=== PATIENT | male | born 1970 | race Caucasian/White ===

== ENCOUNTER → 2019-02-09 | Day surgery (SDC) | payer OTHER ==
[~2019-02-09] MED LIST: DEXAMETHASONE SOD PHOS 10 MG/1 ML VIAL ONE; FENTANYL CITRATE/PF 100MCG/2 ML INJ ONE; GLYCOPYRROLATE INJ 1MG/ 5 ML SYR ONE; KETOROLAC TROMETHAMINE 30 MG/ML VIAL ONE; LIDOCAINE HCL 2% LOCAL INJ 5 ML SDV VIAL INJ ONE; LOSARTAN-HCTZ1 EACH PO; MIDAZOLAM HCL 2 MG/2 ML VIAL ONE; NEOSTIGMINE 5 MG/5ML SYR ONE; ONDANSETRON HCL INJ 2MG/ML 2ML 2 MG/ML VIAL ONE; OXYMETAZOLINE HCL 0.05% NAS 1 SPRAY BTL ONE; PANTOPRAZOLE SO40 MG PO; PROBIOTIC & AC1 EACH PO; PROPOFOL IV EMULSION 10 MG/ML 20 ML VIAL ONE; ROCURONIUM BROMIDE 10 MG/ML 5ML VIAL ONE; SEVOFLURANE INHAL SOLN 250 ML PEN BTL ONE; SUCCINYLCHOLINE 200 MG/10 ML SYR ONE; WELLBUTRIN SR150 MG PO; ZYRTEC10 MG PO
--- OUTSIDE RECORDS SUMMARY | 2019-02-09 08:01 | XMS REPORT ---
Author Author [facility] Address Unknown Phone Unavailable Care Team Providers Care Scoring Machine Operator Name Role Phone Malcom Whitehead Unavailable Unavailable Karmen Munguia Unavailable Unavailable Problems This patient has no known problems. Allergies, Adverse Reactions, Alerts This patient has no known allergies or adverse reactions. Medications This patient has no known medications. Results Test Description Test Time Test Comments Text Results Atomic Results Result Comments Thoracic Spine Ap/Lat 2018-01-20 12:35:00 [place] [address] RADIOLOGY SERVICES REPORT Name: YASMANY SR LEONARDA Acct Number: [id number] :1970 Age:47 Sex:M Ord Phys: Malcom Whitehead MD Unit Number: [id number] [facility] [address]: Status: REG REF RAD Exam Date: 01/20/18 EXAM DESCRIPTION: RAD - Thoracic Spine Ap/Lat - 01/20/2018 12:17 pm CLINICAL HISTORY: M54.2, M54.6 Radiculopathy COMPARISON: No comparisons FINDINGS: The thoracic spine vertebral body heights and disc spaces are largely maintained. No acute compression fracture. No significant malalignment. Cholecystectomy clips. IMPRESSION: Negative study. Signed By: Armani Bruce MD Signed AT: 01/20/18 1236 C Spine Ap/Lat 2018-01-20 12:30:00 [place] [address] RADIOLOGY SERVICES REPORT Name: SR,TODD LEONARDA Acct Number: [id number] :1970 Age:47 Sex:M Ord Phys: Malcom Whitehead MD Unit Number: [id number] [facility] Dr: Status: REG REF RAD Exam Date: 01/20/18 EXAM DESCRIPTION: RAD - C Spine Ap/Lat - 01/20/2018 12:17 pm CLINICAL HISTORY: M54.2, M54.6 COMPARISON: No comparisons FINDINGS: Cervical bodies are normal in height and alignment.No fracture or acute bony process seen.Disc thinning at C4-5 and C5-6 with posterior osteophytes. No prevertebral soft tissue thickening or other suspicious soft tissue finding. IMPRESSION: Moderate midcervical degenerative change. Signed By: Armani Bruce MD Signed AT: 01/20/18 1231 Aerobic bacterial blood culture 2017-09-16 21:12:00 Primary Language Swiss No growth in 5 days.^No growth in 5 days.^L Blood anaerobic culture 2017-09-16 21:12:00 Primary Language Swiss No growth in 5 days.^No growth in 5 days.^L 41339--KVVN PATH LEVEL 3 2017-09-15 09:35:00 RUN DATE: 09/15/17 [facility]*Live* PAGE 1 RUN TIME: 934 Specimen Inquiry PATIENT: YASMANY SR ACCT: [id number] LOC: 2ND U: [id number] AGE/SX: 47/M ROOM: 225 RE09/12/17REG DR: Karmen Munguia MD : 1970 BED: A DIS: 09/14/17 STATUS: DIS IN TLOC: SPEC : [id number] RECD: 09/12/17 STATUS: NNEKA BAUER NUM: [id number] YANCI: 09/12/[address]: Akira Weathers MD ENTERED: 09/12/17 SP TYPE: INPATIENT OTHR DR: Karmen Munguia MD ORDERED: [id number] CODES: GALLBLADDER, NO COPIES TO: Karmen Munguia MD [address] [place] [address] Akira Weathers MD [address] [place] [address] [address], [place] [address] PROCEDURES: [id number] (09/12/17) TISSUES: GALLBLADDER, NOS CLINICAL HISTORY Pre-op Diagnosis: Cholelithiasis.Post-op Diagnosis: Not stated. DIAGNOSIS Gallbladder, cholecystectomy: - Cholelithiasis - Acute and chronic cholecystitis CPT 55085 GROSS DESCRIPTION The case is received in one part, labeled with the patient's name "Yasmany Sr" andaccession #[id number] accompanied by a requisition slip labeled with the patient's name andthe same accession number. The specimen is received in formalin, labeled "gallbladder" and consists of an intacttan-red to purple saccular gallbladder measuring 11 x 5 x 3.5 cm. The serosa is dusky andappears inflamed. There is a small amount of attached possible exudate. There is a greenoval gallstone in the lumen measuring 2.2 cm in maximum dimension. The wall of thegallbladder ranges from 0.2 to 1 cm in thickness. The mucosa is erythematous. Representativesections are submitted in two cassettes. (ASW) CONTINUED ON NEXT PAGE ------ RUN DATE: 09/15/17 [facility]*Live* PAGE 2 RUN TIME: 934 Specimen Inquiry SPEC: [id number] PATIENT: AMBARYASMANY [id number] (Continued) MICROSCOPIC DESCRIPTION Sections show gallbladder wall with acute and chronic inflammation and hemorrhage. Signed (signature on file) Danielle Moreno MD 09/15/17 0935 END OF REPORT Complete blood count (CBC) with automated white blood cell (WBC) differential 2017-09-14 05:57:00 White blood cell count (test saqz=GLP6058) 12.1 4.3-10.9 Blood erythrocytes count (number/volume) (test mtfb=14122-9) 4.27 M/ul 4.33-5.43 Hemoglobin measurement (test yhaw=TIE5556) 10.8 g/dL 13.6-17.9 Blood hematocrit (volume fraction) (test yhcs=56932-2) 33.9 % 39.6-49.0 MCV (test hsfr=02655-9) 79.3 fL 80-100 MCH (test dada=93585-4) 25.3 pg 27.0-35.0 MCHC (test code=MCHC) 32.0 g/dL 32.0-36.0 Platelets (test code=PLT) 178 152-406 Red Cell Distribution Width (test code=RDW) 17.6 % 12.1-15.2 Blood platelet mean volume (test zany=29856-9) 9.9 fL 7.6-11.3 Neutrophils % (test code=EMMETT%) 76.2 % 41.7-73.7 Lymphocytes/leuk NFr Bld (test lubo=62427-9) 10.0 % 15.3-44.8 Monocyte percentage (test szwt=9580-6) 11.7 % 3.3-12.3 Eosinophil % (test bnrg=874-3) 1.6 % 0-4.4 Basophil % (test rrpi=10091-2) 0.5 % 0-1.3 Absolute neutrophil count (test bafu=164-9) 9.2 1.8-8.0 Absolute lymphocyte count (test fvge=12456-8) 1.2 0.7-4.9 Absolute monocyte count (test icdu=179-5) 1.4 0.1-1.3 Absolute Eosinophils (test code=EOA) 0.2 0-0.5 Absolute Basophils (test code=BASA) 0.1 0-0.5 Primary Language EnglishComprehensive metabolic trawo6274-15-51 05:49:00* Test Item Value Reference Range Comments Sodium level (test rumn=ZPX9262) 134 meq/L 135-145 3.9 Chloride measurement (test xmvu=IDA3950) 100 meq/L 101-111 Bicarbonate (test code=CO2) 28 meq/L 21-31 Glucose measurement (test tilj=RLP8289) 106 mg/dL 65-120 ADA Clinical Practice Recommendation: <100 mg/dl=Normal Fasting Glucose BUN Bld-mCnc (test okqd=0719-8) 8 mg/dL 6-20 Creatinine measurement (test pvxf=EUS2517) 0.85 mg/dL 0.61-1.24 The creatinine method used has been calibrated to be traceable to Isotope dilution Mass Spectrometry (IDMS). For more information: www.nkdep.nih.gov Estimated glomerular filtration rate (GFR) determination (test bfec=72906-8) >90 mL =/>90 FOR CHRONIC KIDNEY DISEASE: GFR STAGE DESCRIPTION=/>90 STAGE 1 NORMAL--OR-- MINIMAL KIDNEY DAMAGE WITH NORMAL GFR 60-89 STAGE 2 MILD DECREASE IN GFR 30-59 STAGE 3 MODERATE DECREASE IN GFR 15-29 STAGE 4 SEVERE DECREASE IN GFR <15 STAGE 5 KIDNEY FAILURE The Glomerular Filtration Rate (GFR) has been calculated using the IDMS-Traceable MDRD Study Equation. Aspartate aminotransferase (AST) measurement (test nkky=SDX8061) 49 [iU]/L 10-42 ALT/SGPT (test code=SGPT) 73 [iU]/L 10-60 Alkaline Phosphatase (test code=ALK) 60 [iU]/L 42-121 Bilirubin total (test ujzn=PRC1880) 0.8 mg/dL 0.3-1.2 Calcium Level (test code=CA) 8.3 mg/dL 8.5-10.5 Serum total protein measurement (test nodi=6596-7) 5.7 g/dL 6.0-8.3 Albumin measurement (test bizc=SER1362) 2.7 g/dL 3.2-5.5 Globulin (test code=GLOB) 3.0 g/dL 2.3-3.5 Albumin/Globulin Ratio (test code=A/G) 0.9 1.1-1.8 Primary Language EnglishPhosphorus cpvszaoalyy8607-27-97 05:49:00* Test Item Value Reference Range Comments Phosphorus measurement (test ukik=QXF0539) 2.9 mg/dL 2.5-4.3 Primary Language MkeaalxFmtphjhnj2751-95-65 05:49:00* Test Item Value Reference Range Comments Magnesium (test code=MG) 1.9 mg/dL 1.8-2.5 Primary Language EnglishComprehensive metabolic wynwz8193-07-90 05:35:00* Test Item Value Reference Range Comments Sodium level (test oukj=TVP9981) 134 meq/L 135-145 4.1 Chloride measurement (test aelj=XKH4604) 100 meq/L 101-111 Bicarbonate (test code=CO2) 28 meq/L 21-31 Glucose measurement (test kbsm=RVC3158) 109 mg/dL 65-120 ADA Clinical Practice Recommendation: <100 mg/dl=Normal Fasting Glucose BUN Bld-mCnc (test febh=1639-0) 11 mg/dL 6-20 Creatinine measurement (test wwbj=JLR3670) 1.12 mg/dL 0.61-1.24 The creatinine method used has been calibrated to be traceable to Isotope dilution Mass Spectrometry (IDMS). For more information: www.nkdep.nih.gov Estimated glomerular filtration rate (GFR) determination (test ezdz=57442-3) 70 mL =/>90 FOR CHRONIC KIDNEY DISEASE: GFR STAGE DESCRIPTION=/>90 STAGE 1 NORMAL--OR-- MINIMAL KIDNEY DAMAGE WITH NORMAL GFR 60-89 STAGE 2 MILD DECREASE IN GFR 30-59 STAGE 3 MODERATE DECREASE IN GFR 15-29 STAGE 4 SEVERE DECREASE IN GFR <15 STAGE 5 KIDNEY FAILURE The Glomerular Filtration Rate (GFR) has been calculated using the IDMS-Traceable MDRD Study Equation. Aspartate aminotransferase (AST) measurement (test zeeb=UFA8092) 71 [iU]/L 10-42 ALT/SGPT (test code=SGPT) 79 [iU]/L 10-60 Alkaline Phosphatase (test code=ALK) 65 [iU]/L 42-121 Bilirubin total (test bftv=FWI8869) 0.7 mg/dL 0.3-1.2 Calcium Level (test code=CA) 8.0 mg/dL 8.5-10.5 Serum total protein measurement (test pziw=1157-6) 5.9 g/dL 6.0-8.3 Albumin measurement (test jvyv=FGU8993) 3.0 g/dL 3.2-5.5 Globulin (test code=GLOB) 2.9 g/dL 2.3-3.5 Albumin/Globulin Ratio (test code=A/G) 1.0 1.1-1.8 Primary Language EnglishPhosphorus requcoljska7880-90-71 05:35:00* Test Item Value Reference Range Comments Phosphorus measurement (test gvea=ACK9682) 2.9 mg/dL 2.5-4.3 Primary Language RjakmezQewfsnpps1201-21-48 05:35:00* Test Item Value Reference Range Comments Magnesium (test code=MG) 2.0 mg/dL 1.8-2.5 Primary Language EnglishComplete blood count (CBC) with automated white blood cell (WBC) lfhqidyddqdo5591-16-55 05:21:00* Test Item Value Reference Range Comments White blood cell count (test vfva=DGM1675) 11.5 4.3-10.9 Blood erythrocytes count (number/volume) (test uiza=54445-9) 4.16 M/ul 4.33-5.43 Hemoglobin measurement (test mttm=ERU2437) 10.4 g/dL 13.6-17.9 Blood hematocrit (volume fraction) (test year=12879-5) 33.4 % 39.6-49.0 MCV (test mgwk=41946-3) 80.1 fL 80-100 MCH (test xctq=99993-3) 24.9 pg 27.0-35.0 MCHC (test code=MCHC) 31.1 g/dL 32.0-36.0 Platelets (test code=PLT) 185 152-406 Red Cell Distribution Width (test code=RDW) 17.6 % 12.1-15.2 Blood platelet mean volume (test tepr=21640-9) 10.3 fL 7.6-11.3 Neutrophils % (test code=EMMETT%) 77.2 % 41.7-73.7 Lymphocytes/leuk NFr Bld (test whnk=99482-4) 9.6 % 15.3-44.8 Monocyte percentage (test wkzb=9082-3) 11.5 % 3.3-12.3 Eosinophil % (test ltsk=150-5) 1.0 % 0-4.4 Basophil % (test aggj=98892-0) 0.7 % 0-1.3 Absolute neutrophil count (test wjug=420-3) 8.9 1.8-8.0 Absolute lymphocyte count (test njdo=77886-5) 1.1 0.7-4.9 Absolute monocyte count (test orww=587-1) 1.3 0.1-1.3 Absolute Eosinophils (test code=EOA) 0.1 0-0.5 Absolute Basophils (test code=BASA) 0.1 0-0.5 Primary Language EnglishComprehensive metabolic lhkyy3961-75-78 07:18:00* Test Item Value Reference Range Comments Sodium level (test kuqv=FAV9234) 136 meq/L 135-145 3.9 Chloride measurement (test uixj=GEI6526) 102 meq/L 101-111 Bicarbonate (test code=CO2) 27 meq/L 21-31 Glucose measurement (test boxn=PCS0225) 106 mg/dL 65-120 ADA Clinical Practice Recommendation: <100 mg/dl=Normal Fasting Glucose BUN Bld-mCnc (test yxft=3453-0) 11 mg/dL 6-20 Creatinine measurement (test cjla=WEC3830) 1.13 mg/dL 0.61-1.24 The creatinine method used has been calibrated to be traceable to Isotope dilution Mass Spectrometry (IDMS). For more information: www.nkdep.nih.gov Estimated glomerular filtration rate (GFR) determination (test reno=36377-4) 70 mL =/>90 FOR CHRONIC KIDNEY DISEASE: GFR STAGE DESCRIPTION=/>90 STAGE 1 NORMAL--OR-- MINIMAL KIDNEY DAMAGE WITH NORMAL GFR 60-89 STAGE 2 MILD DECREASE IN GFR 30-59 STAGE 3 MODERATE DECREASE IN GFR 15-29 STAGE 4 SEVERE DECREASE IN GFR <15 STAGE 5 KIDNEY FAILURE The Glomerular Filtration Rate (GFR) has been calculated using the IDMS-Traceable MDRD Study Equation. Aspartate aminotransferase (AST) measurement (test hhvq=ZFG3158) 78 [iU]/L 10-42 ALT/SGPT (test code=SGPT) 81 [iU]/L 10-60 Alkaline Phosphatase (test code=ALK) 82 [iU]/L 42-121 Bilirubin total (test umpk=WDD5947) 1.1 mg/dL 0.3-1.2 Calcium Level (test code=CA) 8.5 mg/dL 8.5-10.5 Serum total protein measurement (test aoyj=1484-3) 6.3 g/dL 6.0-8.3 Albumin measurement (test cmoe=WXX3151) 3.3 g/dL 3.2-5.5 Globulin (test code=GLOB) 3.0 g/dL 2.3-3.5 Albumin/Globulin Ratio (test code=A/G) 1.1 1.1-1.8 Primary Language EnglishPhosphorus kyxxbzupoim3740-38-12 07:18:00* Test Item Value Reference Range Comments Phosphorus measurement (test gpen=YBQ8598) 1.9 mg/dL 2.5-4.3 Primary Language HuirmayLnsbslvfi0850-24-78 07:18:00* Test Item Value Reference Range Comments Magnesium (test code=MG) 1.9 mg/dL 1.8-2.5 Primary Language EnglishComplete blood count (CBC) with automated white blood cell (WBC) iwcwcrguisrw3150-43-40 05:32:00* Test Item Value Reference Range Comments White blood cell count (test qwtn=BXL2667) 13.3 4.3-10.9 Blood erythrocytes count (number/volume) (test lovk=27439-0) 4.84 M/ul 4.33-5.43 Hemoglobin measurement (test watt=DAB6608) 11.9 g/dL 13.6-17.9 Blood hematocrit (volume fraction) (test rkzc=87560-2) 38.6 % 39.6-49.0 MCV (test qszk=07159-9) 79.8 fL 80-100 MCH (test obxb=67483-2) 24.6 pg 27.0-35.0 MCHC (test code=MCHC) 30.9 g/dL 32.0-36.0 Platelets (test code=PLT) 225 152-406 Red Cell Distribution Width (test code=RDW) 17.9 % 12.1-15.2 Blood platelet mean volume (test fpso=16164-5) 10.0 fL 7.6-11.3 Neutrophils % (test code=EMMETT%) 78.6 % 41.7-73.7 Lymphocytes/leuk NFr Bld (test ndis=48614-2) 8.8 % 15.3-44.8 Monocyte percentage (test qfco=1750-2) 11.3 % 3.3-12.3 Eosinophil % (test vddz=051-1) 0.7 % 0-4.4 Basophil % (test wzpl=92703-7) 0.6 % 0-1.3 Absolute neutrophil count (test bikj=380-7) 10.5 1.8-8.0 Absolute lymphocyte count (test inke=18357-1) 1.2 0.7-4.9 Absolute monocyte count (test xqod=233-8) 1.5 0.1-1.3 Absolute Eosinophils (test code=EOA) 0.1 0-0.5 Absolute Basophils (test code=BASA) 0.1 0-0.5 Primary Language EnglishLactic acid qlkhaejfyfs3845-85-55 21:28:00* Test Item Value Reference Range Comments Lactic acid measurement (test bytf=VXJ3363) 14.7 mg/dL 4.5-19.8 Primary Language NrngmmpVzzeecpamb0306-13-45 21:26:00* Test Item Value Reference Range Comments Urine color (test gwha=4952-0) YELLOW Urine appearance determination (test xkfp=2229-3) CLEAR Urine specific gravity measurement (test rwly=3736-1) 1.015 1.005-1.030 Urine glucose detection (test jsde=2357-9) Negative NEG Urine bilirubin detection (test zbxc=1750-0) Negative NEG Urine Ketones (test code=UKET) NEGATIVE NEG Urine blood detection (test srpg=57704-5) Negative NEG Urine pH (test ajvb=7640-6) 6.0 5.0-7.0 Urinalysis with microscopy (test jysa=44238-5) NEGATIVE NEG Urine urobilinogen detection (test kkec=64471-1) 0.2 0.2-1.0 Urine Nitrate (test code=UNIT) NEGATIVE NEG Urine Leukocyte Esterase (test code=UESTR) NEGATIVE NEG Primary Language Swiss HOW IS URINE COLLECTED? Clean Catch UrineComplete blood count (CBC) with automated white blood cell (WBC) xvymajnwhwwb2900-02-93 14:11:00* Test Item Value Reference Range Comments White blood cell count (test ctez=FOZ5762) 13.7 4.3-10.9 Blood erythrocytes count (number/volume) (test qbia=03880-4) 5.59 M/ul 4.33-5.43 Hemoglobin measurement (test hxwm=NMZ8744) 14.0 g/dL 13.6-17.9 Blood hematocrit (volume fraction) (test dzsn=09200-6) 44.6 % 39.6-49.0 MCV (test azbc=38004-7) 79.7 fL 80-100 MCH (test gfyo=70513-4) 25.0 pg 27.0-35.0 MCHC (test code=MCHC) 31.4 g/dL 32.0-36.0 Platelets (test code=PLT) 270 152-406 Red Cell Distribution Width (test code=RDW) 18.5 % 12.1-15.2 Blood platelet mean volume (test cviz=96790-3) 9.4 fL 7.6-11.3 Neutrophils % (test code=EMMETT%) 78.7 % 41.7-73.7 Lymphocytes/leuk NFr Bld (test hzxu=71391-8) 9.9 % 15.3-44.8 Monocyte percentage (test fjnb=3374-4) 9.7 % 3.3-12.3 Eosinophil % (test nbke=231-0) 0.9 % 0-4.4 Basophil % (test fxct=59123-8) 0.8 % 0-1.3 Absolute neutrophil count (test dvvq=421-2) 10.8 1.8-8.0 Absolute lymphocyte count (test yixa=33726-0) 1.4 0.7-4.9 Absolute monocyte count (test krwa=300-0) 1.3 0.1-1.3 Absolute Eosinophils (test code=EOA) 0.1 0-0.5 Absolute Basophils (test code=BASA) 0.1 0-0.5 Basic Metabolic Tpkkr5346-60-19 14:10:00* Test Item Value Reference Range Comments Sodium level (test ylsh=ZGE0031) 139 meq/L 135-145 3.6 Chloride measurement (test dvls=WLV0413) 99 meq/L 101-111 Bicarbonate (test code=CO2) 32 meq/L 21-31 Glucose measurement (test dequ=ADW6464) 108 mg/dL 65-120 ADA Clinical Practice Recommendation: <100 mg/dl=Normal Fasting Glucose BUN Bld-mCnc (test vbjg=9547-1) 14 mg/dL 6-20 Creatinine measurement (test rrbo=LCC5769) 1.22 mg/dL 0.61-1.24 The creatinine method used has been calibrated to be traceable to Isotope dilution Mass Spectrometry (IDMS). For more information: www.nkdep.nih.gov Estimated glomerular filtration rate (GFR) determination (test duhe=20979-8) 64 mL =/>90 FOR CHRONIC KIDNEY DISEASE: GFR STAGE DESCRIPTION=/>90 STAGE 1 NORMAL--OR-- MINIMAL KIDNEY DAMAGE WITH NORMAL GFR 60-89 STAGE 2 MILD DECREASE IN GFR 30-59 STAGE 3 MODERATE DECREASE IN GFR 15-29 STAGE 4 SEVERE DECREASE IN GFR <15 STAGE 5 KIDNEY FAILURE The Glomerular Filtration Rate (GFR) has been calculated using the IDMS-Traceable MDRD Study Equation. Calcium Level (test code=CA) 9.4 mg/dL 8.5-10.5 Liver (Hepatic) Tnwcmipz8211-80-58 14:10:00* Test Item Value Reference Range Comments Aspartate aminotransferase (AST) measurement (test aggl=DRS1146) 37 [iU]/L 10-42 ALT/SGPT (test code=SGPT) 32 [iU]/L 10-60 Alkaline Phosphatase (test code=ALK) 71 [iU]/L 42-121 Bilirubin total (test ynmr=QMT7393) 0.9 mg/dL 0.3-1.2 Bilirubin direct (test fmov=2390-9) 0.2 mg/dL 0-0.2 Serum total protein measurement (test gfzq=5898-7) 8.1 g/dL 6.0-8.3 Albumin measurement (test xcmv=GIY2084) 4.6 g/dL 3.2-5.5 Globulin (test code=GLOB) 3.5 g/dL 2.3-3.5 Albumin/Globulin Ratio (test code=A/G) 1.3 1.1-1.8 Amylase cgatectlkvo4342-65-83 14:10:00* Test Item Value Reference Range Comments Amylase measurement (test kacd=NIP0982) 56 U/L 28-100 Lipase ejschaxzifh5396-13-85 14:10:00* Test Item Value Reference Range Comments Lipase measurement (test meqo=5999-1) 18 U/L 22-51 [facility] [address] [address] [facility] REPORT Name: YASMANY SR Acct Number: [id number] :1970 Age:47 Sex:M Ord Phys: Janet Wilson [facility] Unit Number: [id number] [facility]: Malcom Whitehead MD Status: [facility] ER Exam Date: 09/11/17 EXAM DESCRIPTION: US - Abdomen Exam Limited - 09/11/2017 2:18 pm CLINICAL HISTORY: Abdominal pain. COMPARISON: 11/07/2014 FINDINGS: The gallbladder demonstrates a prominent gallstone within the gallbladder neck. Gallbladder wall is thickened and edematous measuring 8 mm. The common bile duct is normal measuring 3 mm. The liver demonstrates no findings of intrahepatic biliary dilatation. IMPRESSION: Cholelithiasis with findings suspicious for early acute cholecystitis. Signed By: Armani Bruce MD Signed AT: 09/11/17 1421
--- OUTSIDE RECORDS SUMMARY | 2019-02-09 08:01 | XMS REPORT | Continuity of Care Document ---
Author Author [facility] [address] [place] [address] Care Team Providers Care Tipple Repairer Name Role Phone Malcom Whitehead PCP Edis Ken Rndphys Karmen Munguia Attphys Akira Weathers Rndphys Allergies, Adverse Reactions, Alerts Allergen Type Severity Reaction Last Updated Verified Status No Known Drug Allergies Allergy Unknown November 07, 2014 Y Active No Known Allergies Allergy Unknown September 11, 2017 Active Medications Active Medications Medication Dose Units Route Sig Qty Days Start Date Discontinued Date Status Instructions Bupropion *Xl* 300 MG ORAL DAILY November 06, 2014 Active Losartan/Hydrochlorothiazide 1 TAB ORAL DAILY September 11, 2017 Active Pantoprazole 40 MG ORAL DAILY September 11, 2017 Active Ciprofloxacin Hcl 500 MG ORAL TWICE DAILY 14 September 14, 2017 Active Acetaminophen With Codeine 1 EACH ORAL EVERY 4 HOURS NEEDED PRN For Pain 40 September 14, 2017 Active Discontinued Medications Medication Dose Units Route Sig Qty Days Start Date Discontinued Date Status Instructions Aspirin 81 MG ORAL DAILY November 06, 2014 November 08, 2014 Discontinued Lisinopril 10 MG ORAL DAILY November 06, 2014 September 11, 2017 Discontinued Testosterone 5 GM TOPICALLY DAILY November 06, 2014 September 11, 2017 Discontinued Sucralfate 1 GM ORAL FOUR TIMES DAILY 120 November 08, 2014 September 11, 2017 Discontinued 1 PO QID Hyoscyamine Sulfate 0.125 MG ORAL FOUR TIMES DAILY NEEDED PRN For Abdominal Cramps 60 November 08, 2014 September 11, 2017 Discontinued 1 PO QID ac and hs Nicotine 21 MG TRANSDERM DAILY November 08, 2014 September 11, 2017 Discontinued Pantoprazole 40 MG ORAL TWICE DAILY BEFORE MEALS 60 November 08, 2014 September 11, 2017 Discontinued 1 PO BID Problem List Active Problems Medical Problem Onset Date Status Tobacco abuse counseling November 07, 2014 Active Cholecystitis September 12, 2017 Active Upper GI bleeding November 07, 2014 Active HTN (hypertension) September 12, 2017 Active Procedures Procedure Date Status Provider(s) LAPAROSCOPIC CHOLECYSTECTOMY-POSS OPEN September 12, 2017 completed Akira Weathers MD Anaerobic Blood Culture September 11, 2017 active Aerobic Blood Culture September 11, 2017 active Relevant Diagnostic Tests and/or Laboratory Data Laboratory Results Test Date/Time Result Interp. Ref. Range Result Comment White Blood Count September 14, 2017 5:00am 12.1 K/uL High 4.3-10.9 Red Blood Count September 14, 2017 5:00am 4.27 M/uL Low 4.33-5.43 Hemoglobin September 14, 2017 5:00am 10.8 g/dL Low 13.6-17.9 Hematocrit September 14, 2017 5:00am 33.9 % Low 39.6-49.0 Mean Corpuscular Volume September 14, 2017 5:00am 79.3 fL Low 80-100 Mean Corpuscular Hemoglobin September 14, 2017 5:00am 25.3 pg Low 27.0-35.0 Mean Corpuscular Hemoglobin Concent September 14, 2017 5:00am 32.0 g/dL 32.0-36.0 Platelet Count September 14, 2017 5:00am 178 K/uL 152-406 Red Cell Distribution Width September 14, 2017 5:00am 17.6 % High 12.1-15.2 Mean Platelet Volume September 14, 2017 5:00am 9.9 fL 7.6-11.3 Neutrophils % September 14, 2017 5:00am 76.2 % High 41.7-73.7 Lymphocytes % September 14, 2017 5:00am 10.0 % Low 15.3-44.8 Monocytes % September 14, 2017 5:00am 11.7 % 3.3-12.3 Eosinophils % September 14, 2017 5:00am 1.6 % 0-4.4 Basophils % September 14, 2017 5:00am 0.5 % 0-1.3 Absolute Neutrophil September 14, 2017 5:00am 9.2 K/uL High 1.8-8.0 Absolute Lymphocytes (CBC) September 14, 2017 5:00am 1.2 K/uL 0.7-4.9 Absolute Monocytes (CBC) September 14, 2017 5:00am 1.4 K/uL High 0.1-1.3 Absolute Eosinophils (CBC) September 14, 2017 5:00am 0.2 K/uL 0-0.5 Absolute Basophils (CBC) September 14, 2017 5:00am 0.1 K/uL 0-0.5 Sodium Level September 14, 2017 5:00am 134 mEq/L Low 135-145 Potassium Level September 14, 2017 5:00am 3.9 mEq/L 3.6-5.0 Chloride Level September 14, 2017 5:00am 100 mEq/L Low 101-111 Carbon Dioxide Level September 14, 2017 5:00am 28 mEq/L 21-31 Glucose Level September 14, 2017 5:00am 106 mg/dL 65-120 ADA Clinical Practice Recommendation: <100 mg/dl=Normal Fasting Glucose Blood Urea Nitrogen September 14, 2017 5:00am 8 mg/dL 6-20 Creatinine September 14, 2017 5:00am 0.85 mg/dL 0.61-1.24 The creatinine method used has been calibrated to be traceable to Isotope dilution Mass Spectrometry (IDMS). For more information: www.nkdep.nih.gov Estimat Glomerular Filtration Rate September 14, 2017 5:00am > 90 mL/min 90- FOR CHRONIC KIDNEY DISEASE: GFR STAGE DESCRIPTION =/>90 STAGE 1 NORMAL--OR-- MINIMAL KIDNEY DAMAGE WITH NORMAL GFR 60-89 STAGE 2 MILD DECREASE IN GFR 30-59 STAGE 3 MODERATE DECREASE IN GFR 15-29 STAGE 4 SEVERE DECREASE IN GFR <15 STAGE 5 KIDNEY FAILURE The Glomerular Filtration Rate (GFR) has been calculated using the IDMS-Traceable MDRD Study Equation. Aspartate Amino Transf (AST/SGOT) September 14, 2017 5:00am 49 IU/L High 10-42 Alanine Aminotransferase (ALT/SGPT) September 14, 2017 5:00am 73 IU/L High 10-60 Alkaline Phosphatase September 14, 2017 5:00am 60 IU/L 42-121 Total Bilirubin September 14, 2017 5:00am 0.8 mg/dL 0.3-1.2 Direct Bilirubin September 11, 2017 1:35pm 0.2 mg/dL 0-0.2 Calcium Level September 14, 2017 5:00am 8.3 mg/dL Low 8.5-10.5 Phosphorus Level September 14, 2017 5:00am 2.9 mg/dL 2.5-4.3 Serum Total Protein September 14, 2017 5:00am 5.7 g/dL Low 6.0-8.3 Albumin September 14, 2017 5:00am 2.7 g/dL Low 3.2-5.5 Globulin September 14, 2017 5:00am 3.0 g/dL 2.3-3.5 Albumin/Globulin Ratio September 14, 2017 5:00am 0.9 Low 1.1-1.8 Magnesium Level September 14, 2017 5:00am 1.9 mg/dL 1.8-2.5 Amylase Level September 11, 2017 1:35pm 56 U/L 28-100 Lipase September 11, 2017 1:35pm 18 U/L Low 22-51 Lactic Acid Level September 11, 2017 9:05pm 14.7 mg/dL 4.5-19.8 Urine Color September 11, 2017 8:55pm Yellow Urine Appearance September 11, 2017 8:55pm Clear Urine Specific [place] September 11, 2017 8:55pm 1.015 Urine Glucose September 11, 2017 8:55pm Negative Urine Bilirubin September 11, 2017 8:55pm Negative Urine Ketones September 11, 2017 8:55pm Negative Urine Blood September 11, 2017 8:55pm Negative Urine pH September 11, 2017 8:55pm 6.0 Urine Total Protein September 11, 2017 8:55pm Negative Urine Urobilinogen September 11, 2017 8:55pm 0.2 mg/dL Urine Nitrite September 11, 2017 8:55pm Negative Urine Leukocyte Esterase September 11, 2017 8:55pm Negative Discharge Summary Encounter: Discharged Inpatient Admit Date: September 12, 2017 4:45pm Discharge Date: September 14, 2017 2:23pm [facility] NAME: HEYDI VILLALTA ADMITTING: Karmen Munguia MD ADMIT DATE: 09/12/17 ATTENDING: Karmen Munguia MD : 1970 ACCOUNT NO: [id number] PATIENT TYPE: ADM IN LOCATION: [facility] Report Status: Signed Date of Procedure: 09/12/17 Surgeon: Akira Weathers MD Date of Procedure: 09/12/2017 Surgeon: Akira Weathers MD Preoperative Diagnosis: Acute cholecystitis and cholelithiasis. Postoperative Diagnosis: Acute cholecystitis and cholelithiasis. Procedure: Laparoscopic cholecystectomy. Estimated Blood Loss: Minimal. Specimen: Gallbladder. Finding: As above. Anesthesia: General. Complications: None. Disposition: The patient tolerated the procedure in stable condition and taken to Recovery in good general condition. Procedure In Detail: The patient brought to the OR and placed in the supine position. General anesthesia was begun. The patient was prepped and draped in usual sterile fashion. Marcaine 0.5% was infiltrated locally. A 15-blade was used to make a 2-cm incision in the supraumbilical midline incision. Subcutaneous tissue was divided. Fascia and plane divided. A #1 Vicryl stay suture was placed. Peritoneal cavity was entered with blunt dissection. A 12-mm trocar was placed into the peritoneal cavity under direct vision. Pneumoperitoneum was established. Three 5-mm trocars placed 1 in the epigastrium just to the right of midline, and 2 in the right subcostal region. Laparoscopy revealed acute inflammation of the gallbladder, distention some adhesions, gallbladder aspirated of white bile present consistent with hydrops and fundus retracted superiorly. Infundibulum was identified and retracted inferolaterally. Cystic duct and cystic artery were clearly identified with blunt dissection. Clips were placed. Both structures divided. Cautery was used to remove the gallbladder from the liver bed. Bleeding on the liver bed was controlled cautery. The gallbladder retrieved through the umbilicus via an EndoCatch bag. Right upper quadrant was irrigated. Effluent was clear. No evidence of bleeding or bile leakage appreciated. Subsequently, all trocars were removed under direct vision. Stay sutures were tied to each other across the fashion defect. Subcutaneous wounds were irrigated. Bleeding controlled with cautery. A 3-0 chromic used for subcutaneous tissue and mariia used to close skin. Sterile dressing was applied. The patient was awakened and taken to Recovery in good general condition. /MODL Voice ID: [id number] Report ID: [id number] <Electronically signed by Akira Weathers MD> 09/13/17 0953 Advance Directives Advance Directive Response Recorded Date/Time Does Patient Have Living Will No September 13, 2017 5:10am Durable Power of Soil Specialist for Health Care No September 11, 2017 6:21pm Would you like additional information No September 11, 2017 3:18pm Chief Complaint and Reason for Visit Encounter Admit Date Chief Complaint Reason for Visit Discharged Inpatient September 12, 2017 4:45pm ACUTE CHOLECYSTITIS,CHOLELITHIASIS Cholecystitis Hypertension Hospital Discharge Instructions Query Response Comment Date/Time Discharge Instruction given to Patient/Caregiver Yes 09/14/2017 14:16 Additional Discharge Instructions PROBLEM: Status post laparoscopic cholecystectomy GOAL: Clear understanding of disease process INSTRUCTIONS: Ok to discharge home Follow up with Primary Care Provider in 2 weeks Follow up with Dr. Weathers in 1 week Take new medications as prescribed Contact physician or return to ER for any complications or concerns Call [phone] for any questions regarding hospital stay Diet: Regular Activity: As tolerated E-script sent to [facility] [place], Take complete course of antibiotics, Contact physician for any questions Instruction/Education Provided Cholecystectomy -- Laparoscopic Surgery Hospital Discharge Medications Medication Dose Units Route Sig Qty Days Order Date Status Instructions Aspirin 81 MG ORAL DAILY November 06, 2014 Discontinued Lisinopril 10 MG ORAL DAILY November 06, 2014 Discontinued Testosterone 5 GM TOPICALLY DAILY November 06, 2014 Discontinued Bupropion *Xl* 300 MG ORAL DAILY November 06, 2014 Active Sucralfate 1 GM ORAL FOUR TIMES DAILY 120 November 08, 2014 Discontinued 1 PO QID Hyoscyamine Sulfate 0.125 MG ORAL FOUR TIMES DAILY NEEDED PRN For Abdominal Cramps 60 November 08, 2014 Discontinued 1 PO QID ac and hs Nicotine 21 MG TRANSDERM DAILY November 08, 2014 Discontinued Pantoprazole 40 MG ORAL TWICE DAILY BEFORE MEALS 60 November 08, 2014 Discontinued 1 PO BID Losartan/Hydrochlorothiazide 1 TAB ORAL DAILY September 11, 2017 Active Pantoprazole 40 MG ORAL DAILY September 11, 2017 Active Ciprofloxacin Hcl 500 MG ORAL TWICE DAILY 14 September 14, 2017 Active Acetaminophen With Codeine 1 EACH ORAL EVERY 4 HOURS NEEDED PRN For Pain 40 September 14, 2017 Active Encounters Encounter Facility Location Admit Date Discharge Date Attending Provider Discharged Inpatient [facility] MED/SURG FLOOR September 12, 2017 4:45pm September 14, 2017 2:23pm Karmen Munguia Encounter Diagnosis Onset Date Cholecystitis September 12, 2017 Hypertension September 12, 2017 Family History Query Response Instance Date Recorded Comment Nurses notes Liver CA Mother September 11, 2017 3:18pm Medical History Cancer Mother September 11, 2017 3:18pm History Unknown Yes Mother September 11, 2017 3:18pm Functional Status Query Response Date Recorded Comment Mental Status Oriented to Own Ability September 14, 2017 12:00pm Mental Status on Discharge Awake Alert September 14, 2017 2:16pm Query Response Date Recorded Comment Bathe Self Independent September 11, 2017 3:18pm Completes ADL's Without Assistance Yes September 11, 2017 3:18pm Cook for Self Independent September 11, 2017 3:18pm Dress/Herrin Self Independent September 11, 2017 3:18pm Feed Self Independent September 11, 2017 3:18pm Toileting Independent September 11, 2017 3:18pm Immunizations No known immunizations. Payers Payer Name Policy Type Covered Democrat Covered Democrat Id Relationship Subscriber Subscriber Id [facility] Health Maintenance Organization (HMO) HEYDI VILLALTA [id number] SAME PATIENT (SELF) Plan of Care Instructions Cholecystectomy -- Laparoscopic Surgery Social History Query Response Date Recorded Comment Alcohol Use? Yes September 11, 2017 6:21pm CD- Drugs? No September 11, 2017 6:21pm Query Response Start Date Stop Date Smoking Status Current every day smoker July 14, 1981 Vital Signs Vital Reading Result Reference Range Collection Date/Time Height 5 ft 6 in September 11, 2017 6:00pm Weight 185 lb September 11, 2017 6:00pm Temperature 100.0 F 96.8 F-100.9 F September 14, 2017 8:00am Pulse 96 BPM 50-90 September 14, 2017 8:21am Respiration 20 RPM 12-September 14, 2017 8:00am Pulse Oximetry 95 % 91- September 14, 2017 8:00am Blood Pressure Systolic 125 90-140 September 14, 2017 8:21am Blood Pressure Diastolic 64 60-90 September 14, 2017 8:21am Body Mass Index 29.8 September 11, 2017 6:00pm
--- OUTSIDE RECORDS SUMMARY | 2019-02-09 08:01 | XMS REPORT | Clinical Summary ---
Author Author [facility] Address Unknown Phone Unavailable Care Team Providers Care Gastroenterologist Name Role Phone Malcom Whitehead MD PCP Allergies No Known Allergies Medications End Date Status Medication Sig Dispensed Refills Start Date Active buPROPion SR (WELLBUTRIN Take 150 mg 0 SR) 150 MG 12 hr tablet by mouth daily. Active varenicline (CHANTIX) 0.5 Take 0.5 mg 0 MG tablet by mouth 2 (two) times a day. Take with full glass of water. Active pantoprazole (PROTONIX) Take 40 mg by 0 40 MG EC tablet mouth daily. Active ALPRAZolam (XANAX) 0.5 MG Take 0.5 mg 0 tablet by mouth as needed for anxiety. Active acetaminophen-codeine Take 1 tablet 0 (TYLENOL WITH CODEINE #3) by mouth 300-30 mg per tablet every 6 (six) hours as needed for moderate pain. Active cetirizine (ZyrTEC) 5 MG Take 5 mg by 0 tablet mouth daily. Active Lactobac no.41/Bifidobact Take by 0 no.7 (PROBIOTIC-10 ORAL) mouth. Active zolpidem (AMBIEN) 5 MG Take 5 mg by 0 tablet mouth nightly as needed for sleep. Active LOSARTAN-HYDROCHLOROTHIAZ Take by 0 RENAN ORAL mouth. PT. STATES HE TAKES 25-12.5MG DAILY. Active Problems Problem Noted Date Preoperative testing 04/08/2018 Encounters Care Team Description Date Type Specialty Balta Youngblood CRNA 04/08/2018 Anesthesia General Surgery Event Juan Parr MD C4-5, C5-6, C6-7 ANTERIOR CERVICAL DISKECTOMY AND FUSION,PLATING, SYNTHETIC INTERVERTEBRAL SPACER 04/08/2018 Surgery General Surgery Juan Parr MD Preoperative testing 04/08/2018 [facility] General Surgery - Encounter 04/09/2018 Juan Parr MD Preoperative testing 04/07/2018 Hospital Radiology Encounter Juan Parr MD Preoperative testing (Primary Dx) 04/07/2018 Pre-Admit Pre-Admission Testing Testing Appointment after 02/08/2018 Family History Medical History Relation Name Comments Cancer Maternal Grandmother Cancer Mother Relation Name Status Comments Father Alive Maternal Grandfather Maternal Grandmother Mother Paternal Grandfather Paternal Grandmother Social History Date Tobacco Use Types Packs/Day Years Used Quit: 04/06/2018 Former Smoker Cigarettes 1 30 Smokeless Tobacco: Former User Alcohol Use Drinks/Week oz/Week Comments Yes STATES 3 DRINKS/ WEEK Sex Assigned at Date Recorded Not on file Industry Job Start Date Occupation Not on file Not on file Not on file Travel End Travel History Travel Start No recent travel history available. Last Filed Vital Signs Time Taken Vital Sign Reading 04/09/2018 4:02 AM CDT Blood Pressure 129/61 04/09/2018 4:02 AM CDT Pulse 80 04/09/2018 4:02 AM CDT Temperature 37.1 C (98.7 F) 04/09/2018 4:02 AM CDT Respiratory Rate 19 04/09/2018 7:51 AM CDT Oxygen Saturation 97% - Inhaled Oxygen - Concentration 04/08/2018 6:29 AM CDT Weight 93 kg (205 lb) 04/08/2018 6:29 AM CDT Height 167.6 cm (5' 6") 04/08/2018 6:29 AM CDT Body Mass Index 33.09 Plan of Treatment Health Maintenance Due Date Last Done Comments INFLUENZA VACCINE 02/11/2019 Implants Device Identifier Shelf Expiration Date Model / Serial / Lot Implanted Type Area Manufactur [id number] / / NONE Novel Cervical Spacer, 7mm Medium, IPM N/A: Spine ALPHATEC 7 Degree Lordotic (Cervical IMPLANT Cervical SPINE Interbody - Implant) - [id number] DEVICES Implanted: Qty: 2 on 04/08/2018 [place] [id number] / / NONE Novel Cervical Spacer, 6mm Medium, IPM N/A: Spine ALPHATEC 7 Degree Lordotic (Cervical IMPLANT Cervical SPINE Interbody - Implant) - [id number] DEVICES Implanted: Qty: 1 on 04/08/2018 [place] [id number] / / NONE Trestle Lux Anterior Cervical Plate IPM N/A: Spine ALPHATEC Assembly, 3-Level, 42mm - IMPLANT Cervical SPINE [id number] DEVICES Implanted: Qty: 1 on 04/08/2018 [place] [id number] / / 4.0mm Trestle Luxe Variable Angle, IPM N/A: Spine ALPHATEC Self Tapping, Hexalobe Screw, Ti, IMPLANT Cervical SPINE 14mm - [id number] DEVICES Implanted: Qty: 8 on 04/08/2018 [place] [id number] / / NONE Bit Drl 2.3x14mm Ss - [id number] Surgical N/A: Spine ALPHATEC Implanted: Qty: 1 on 04/08/2018 by Implants; Cervical SPINE INC Juan Parr MD Expanders; Extenders; Surgical Wires Procedures Comments Procedure Name Priority Date/Time Associated Diagnosis XR CERVICAL SPINE 2 OR 3 STAT 04/08/2018 VW 2:39 PM CDT OR FL > 1 HOUR Routine 04/08/2018 1:10 PM CDT XR CERVICAL SPINE 1 VW Routine 04/08/2018 1:10 PM CDT SURGICAL PATHOLOGY Routine 04/08/2018 REQUEST 11:21 AM CDT LA AN ELECTIVE Routine 04/08/2018 ENDOTRACHEAL AIRWAY 9:57 AM CDT Procedure Note - Balta Youngblodo CRNA - 04/08/2018 9:57 AM CDT Airway Date/Time: 04/08/2018 9:04 AM Performed by: BALTA YOUNGBLOOD Authorized by: DINESH LEE Location: OR Urgency: Elective Difficult Airway: No Anesthesio logist: DINESH LEE Resident/C RNA/AA: BALTA YOUNGBLOOD Performed by: resident/C RNA and resident/C RNA/AA Preoxygena justina with 100% O2: Yes C-spine Precaution s Maintained Throughout : Yes Mask Ventilatio n: Easy mask Final Airway Type: Endotrache al airway Final Endotrache al Airway: ETT Cuffed: Yes Technique Used: Video laryngosco py Insertion Site: Oral Blade Type: Olvera Laryngosco pe Blade/Vide olaryngosc ope Blade Size: 2 ETT Size (mm): 7.5 Cuff at minimum occlusion pressure: Yes Measured from: Lips ETT to Lips (cm): 23 Placement Verified by: CO2 detection and equal breath sounds Rapid Sequence Induction (RSI): No Modified RSI: No Number of Attempts at Approach: 1 Pt placed in C-collar prior to intubation per surgeon request. Easy mask ventilatio n with oral airway. Intubated using glidescope . Visualized ett through cords. Teeth intact, atraumatic intubation . Soft bite block placed in between molars. 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, M96.1 Special Needs NEEDS SHANIQUA YEHER [facility], MICROSCOPE , C-ARMMark With Alphatec notified of case scheduled for 04/08 0715 MW 04/02 XR CHEST 2 VW Routine 04/07/2018 Preoperative testing 3:46 PM CDT ESTIMATED GFR Routine 04/07/2018 3:18 PM CDT COMPREHENSIVE METABOLIC Routine 04/07/2018 Preoperative testing PANEL 3:18 PM CDT PARTIAL THROMBOPLASTIN Routine 04/07/2018 Preoperative testing TIME (PTT) 3:15 PM CDT PROTHROMBIN TIME WITH INR Routine 04/07/2018 Preoperative testing 3:15 PM CDT HC COMPLETE BLD COUNT Routine 04/07/2018 Preoperative testing W/AUTO DIFF 3:15 PM CDT ECG 12-LEAD Routine 04/07/2018 Preoperative testing 3:07 PM CDT after 02/08/2018 Results * XR Cervical Spine 2 Or 3 Vw (04/08/2018 2:39 PM CDT) Specimen Narrative Performed At EXAMINATION:XR CERVICAL SPINE 2 OR 3 VW [facility] CLINICAL HISTORY:C-spine fusionfollow up, POST OP IN PACU COMPARISON:None. IMPRESSION: AP and lateral radiographs demonstrate post ACDF changes extending from C4 to C7 with anterior fixation plate and screws in good position. There is straightening of the cervical lordosis. There is mild disc space narrowing with minimal anterior spur formation at C5, and C7-T1. There are surgical clips in the right side of neck. [id number] Procedure Note Interface, Radiology Results Incoming - 04/08/2018 3:26 PM CDT EXAMINATION: XR CERVICAL SPINE 2 OR 3 VW CLINICAL HISTORY: C-spine fusion follow up, POST OP IN PACU COMPARISON: None. IMPRESSION: AP and lateral radiographs demonstrate post ACDF changes extending from C4 to C7 with anterior fixation plate and screws in good position. There is straightening of the cervical lordosis. There is mild disc space narrowing with minimal anterior spur formation at C5, and C7-T1. There are surgical clips in the right side of neck. [id number] Performing Organization Address [facility] Phone Number [facility] [address] [place] [address] * OR FL > I Hour (04/08/2018 1:10 PM CDT) Specimen Narrative Performed At EXAMINATION:OR FL 1 HOUR HM [facility] C-arm fluoroscopy was requested in OR.FLUORO TIME 0:05 IMPRESSION: Separate operative report will be issued by the physician performing the procedure. [id number] Procedure Note Interface, Radiology Results - 04/08/2018 2:14 PM CDT EXAMINATION: OR FL 1 HOUR C-arm fluoroscopy was requested in OR. FLUORO TIME 0:05 IMPRESSION: Separate operative report will be issued by the physician performing the procedure. [id number] Performing Organization Address [facility] Phone Number [facility] [address] [place] [address] * XR Cervical Spine 1 Vw (04/08/2018 1:10 PM CDT) Specimen Narrative Performed At EXAMINATION:XR CERVICAL SPINE 1 VW HM [facility] CLINICAL HISTORY:Cervical fusion Fluoroscopy time 5 seconds one image was obtained COMPARISON:None. FINDINGS: Vertebral alignment is satisfactory. Hardware is in place for anterior cervical fusion at the C4-5 C5-6 and C6-7 levels. Plate and screws are in place. Spacers are noted at these levels as well. Alignment is anatomic. Endotracheal tube is noted in the neck anteriorly and apparent nasogastric tube with electrode. IMPRESSION: Intraoperative working film as noted [id number] Procedure Note Interface, Radiology Results Incoming - 04/08/2018 2:19 PM CDT EXAMINATION: XR CERVICAL SPINE 1 VW CLINICAL HISTORY: Cervical fusion Fluoroscopy time 5 seconds one image was obtained COMPARISON: None. FINDINGS: Vertebral alignment is satisfactory. Hardware is in place for anterior cervical fusion at the C4-5 C5-6 and C6-7 levels. Plate and screws are in place. Spacers are noted at these levels as well. Alignment is anatomic. Endotracheal tube is noted in the neck anteriorly and apparent nasogastric tube with electrode. IMPRESSION: Intraoperative working film as noted [id number] Performing Organization Address [facility] Phone Number [facility] [address] [place] [address] * Surgical pathology request (04/08/2018 11:21 AM CDT) [facility] DEPARTMENT OF PATHOLOGY AND GENOMIC MEDICINE Surgical See link below for PDF Lab [facility] pathology Report DEPARTMENT OF report PATHOLOGY AND GENOMIC MEDICINE Result status This is Final Report for [facility] [id number] DEPARTMENT OF PATHOLOGY AND GENOMIC MEDICINE Specimen Performing Organization Address [facility] Phone Number [facility] DEPARTMENT [address] [place] [address] PATHOLOGY AND GENOMIC MEDICINE * XR Chest 2 Vw (04/07/2018 3:46 PM CDT) Specimen Narrative Performed At EXAMINATION:[facility]:Z01.818 Encounter for other preprocedural examination, PREOP COMPARISON:None FINDINGS: Heart size appears normal. The mediastinum is unremarkable. The lungs are clear. IMPRESSION: No acute finding is visualized [id number] Procedure Note Interface, Radiology Results Incoming - 04/07/2018 4:25 PM CDT EXAMINATION: XR CHEST 2 VW CLINICAL HISTORY: Z01.818 Encounter for other preprocedural examination, PREOP COMPARISON: None FINDINGS: Heart size appears normal. The mediastinum is unremarkable. The lungs are clear. IMPRESSION: No acute finding is visualized [id number] Performing Organization Address [facility] Phone Number [facility] [address] [place] [address] * Estimated GFR (04/07/2018 3:18 PM CDT) Estimated GFR 64 mL/min/1.73 m2 [facility] Comment: DEPARTMENT OF [facility] PATHOLOGY AND rpretation [place] [address] MEDICINE >=90 Normal or high G2 60-89Mildly decreased [id number] Mildly to moderately decreased X1r48-83 Moderately to severely decreased G4 15-29Severely decreased G5 <15Kidney failure The eGFR was calculated using the Chronic Kidney Disease Epidemiology Collaboration (CKD-EPI) equation. Interpretation is based on recommendations of the National Kidney Foundation-Kidney Disease Outcomes Quality Initiative (NKF-KDOQI) published in 2014. Specimen Plasma specimen Performing Organization Address City/State/Zipcode Phone Number [facility] [address] [place] [address] PATHOLOGY AND GENOMIC MEDICINE * Comprehensive metabolic panel (04/07/2018 3:18 PM CDT) Sodium 142 135 - 148 mEq/L [facility] DEPARTMENT OF PATHOLOGY AND GENOMIC MEDICINE Potassium 4.2 3.5 - 5.0 mEq/L [facility] DEPARTMENT OF PATHOLOGY AND GENOMIC MEDICINE Chloride 102 98 - 112 mEq/L [facility] DEPARTMENT OF PATHOLOGY AND GENOMIC MEDICINE CO2 30 24 - 31 mEq/L [facility] DEPARTMENT OF PATHOLOGY AND GENOMIC MEDICINE Anion gap 10@ANIO 7 - 15 mEq/L [facility] DEPARTMENT OF PATHOLOGY AND GENOMIC MEDICINE BUN 14 6 - 20 mg/dL [facility] DEPARTMENT OF PATHOLOGY AND GENOMIC MEDICINE Creatinine 1.30 (H) 0.70 - 1.20 mg/dL [facility] DEPARTMENT OF PATHOLOGY AND GENOMIC MEDICINE Glucose 72 65 - 99 mg/dL [facility] DEPARTMENT OF PATHOLOGY AND GENOMIC MEDICINE Calcium 9.4 8.3 - 10.2 mg/dL [facility] DEPARTMENT OF PATHOLOGY AND GENOMIC MEDICINE Protein 7.8 6.3 - 8.3 g/dL [facility] Comment: DEPARTMENT OF PATHOLOGY AND 4.6-7.0 g/dL GENOMIC [address] [place] [address] week 4.4-7.6 g/dL 7 months-1year 5.1-7.3 g/dL 1-2 years5.6-7 .5 g/dL >3 years6.0-8 .0 g/dL 18-150 6.3-8.3 g/dL Albumin 4.8 3.5 - 5.0 g/dL [facility] DEPARTMENT OF PATHOLOGY AND GENOMIC MEDICINE A/G ratio 1.6 0.7 - 3.8 [facility] DEPARTMENT OF PATHOLOGY AND GENOMIC MEDICINE Alkaline 82 40 - 129 U/L [facility] phosphatase DEPARTMENT OF PATHOLOGY AND GENOMIC MEDICINE AST 26 10 - 50 U/L [facility] DEPARTMENT OF PATHOLOGY AND GENOMIC MEDICINE ALT 25 5 - 50 U/L [facility] DEPARTMENT OF PATHOLOGY AND GENOMIC MEDICINE Total bilirubin <0.2 0.0 - 1.2 mg/dL [facility] DEPARTMENT OF PATHOLOGY AND GENOMIC MEDICINE Specimen Plasma specimen Performing Organization Address [facility] [place] [facility] Phone Number [address] [place] [address] PATHOLOGY AND GENOMIC MEDICINE * Partial thromboplastin time, activated (04/07/2018 3:15 PM CDT) Pathologist [facility] PTT 28.2 23.0 - 36.0 sec [facility] Comment: DEPARTMENT OF PTT therapeutic range for PATHOLOGY AND unfractionated heparin is GENOMIC 61.0-112.0 seconds which MEDICINE corresponds to Anti-Xa 0.3-0.7 U/ml. Specimen Blood Performing Organization Address [facility] [place] [facility] Phone Number [address] [place] [address] PATHOLOGY AND [facility] * Prothrombin time with INR (04/07/2018 3:15 PM CDT) [facility] Prothrombin 11.5 (L) 12.0 - 15.0 sec [facility] DEPARTMENT OF PATHOLOGY AND GENOMIC MEDICINE INR 0.8 [facility] Comment: DEPARTMENT OF The International Normalized PATHOLOGY AND Ratio (INR) is a therapeutic GENOMIC monitoring tool for patients MEDICINE who are stable on oral anticoagulant therapy. An INR of 2.0-3.0 is suggested for deep vein thrombosis/pulmonary embolism. Specimen Blood Performing Organization Address [facility] Phone Number [address] [place] [address] PATHOLOGY AND GENOMIC MEDICINE * CBC with platelet and differential (04/07/2018 3:15 PM CDT) Pathologist [facility] WBC 8.54 4.50 - 11.00 k/uL [facility] DEPARTMENT OF PATHOLOGY AND GENOMIC MEDICINE RBC 4.60 4.40 - 6.00 m/uL [facility] DEPARTMENT OF PATHOLOGY AND GENOMIC MEDICINE HGB 11.4 (L) 14.0 - 18.0 g/dL [facility] DEPARTMENT OF PATHOLOGY AND GENOMIC MEDICINE HCT 38.0 (L) 41.0 - 51.0 % [facility] DEPARTMENT OF PATHOLOGY AND GENOMIC MEDICINE MCV 82.6 82.0 - 100.0 fL [facility] DEPARTMENT OF PATHOLOGY AND GENOMIC MEDICINE MCH 24.8 (L) 27.0 - 34.0 pg [facility] DEPARTMENT OF PATHOLOGY AND GENOMIC MEDICINE MCHC 30.0 (L) 31.0 - 37.0 g/dL [facility] DEPARTMENT OF PATHOLOGY AND GENOMIC MEDICINE RDW - SD 51.9 37.0 - 55.0 fL [facility] DEPARTMENT OF PATHOLOGY AND GENOMIC MEDICINE MPV 11.9 8.8 - 13.2 fL [facility] DEPARTMENT OF PATHOLOGY AND GENOMIC MEDICINE Platelet count 318 150 - 400 k/uL [facility] DEPARTMENT OF PATHOLOGY AND GENOMIC MEDICINE Nucleated RBC 0.00 /100 WBC [facility] DEPARTMENT OF PATHOLOGY AND GENOMIC MEDICINE Neutrophils 51.7 39.0 - 69.0 % [facility] DEPARTMENT OF PATHOLOGY AND GENOMIC MEDICINE Lymphocytes 33.7 25.0 - 45.0 % [facility] DEPARTMENT OF PATHOLOGY AND GENOMIC MEDICINE Monocytes 10.1 (H) 0.0 - 10.0 % [facility] DEPARTMENT OF PATHOLOGY AND GENOMIC MEDICINE Eosinophils 2.7 0.0 - 5.0 % [facility] DEPARTMENT OF PATHOLOGY AND GENOMIC MEDICINE Basophils 1.4 (H) 0.0 - 1.0 % [facility] DEPARTMENT OF PATHOLOGY AND GENOMIC MEDICINE Specimen Blood Performing Organization Address City/State/Zipcode Phone Number [place] [phone] [place] [address] PATHOLOGY AND GENOMIC MEDICINE * ECG 12 lead (04/07/2018 3:07 PM CDT) Ventricular 75 [facility] rate Atrial rate 75 [facility] LA interval 156 [facility] QRSD interval 96 [facility] QT interval 372 [facility] QTC interval 415 [facility] P axis 1 39 [facility] QRS axis 1 -14 [facility] T wave axis 17 [facility] EKG impression Normal sinus rhythm-Incomplete [facility] MUSE right bundle branch block-Borderline ECG-No previous ECGs available- Specimen Performing Organization Address City/State/Zipcode Phone Number [facility] MUSE [address] [place] [address] after 02/08/2018 Insurance Type Payer Benefit Subscriber ID Effective Phone Address Plan / Dates Group HMO/PPO [facility] xxxxxxxxx 2017-P THCARE resent CHOICE/CHO ICE + Advance Directives Patient has advance care planning documents on file. For more information, aram e contact: Roger Cisneros [address] [place] [address]
--- NOTE | 2019-02-09 11:15 | Pre Op History & Physical ---
DATE OF SURGERY: February 09, 2019. CHIEF COMPLAINT: Lesion on the floor of the mouth on the left side. HISTORY OF PRESENT ILLNESS: This 48 years old male was noted to have a lesion on the floor of the mouth by his dentist over the past few months. The area seems to have not changed in size. The patient denies any dysphagia, odynophagia, or shortness of breath. He denies any hoarseness. The patient denies any discomfort in that area. The patient smokes about half a pack of cigars a day and a few alcoholic drinks per day. REVIEW OF SYSTEMS: System review showed no recent cardiovascular, respiratory, or GI problem. PAST MEDICAL HISTORY: The patient has history of hypertension. PAST SURGICAL HISTORY: The patient has previous C-spine fusion, cholecystectomy and GreenLight laser for the prostate and also tonsillectomy. ALLERGIES: HE HAS NO KNOWN ALLERGY TO MEDICATION. MEDICATIONS: He is on pantoprazole, losartan, probiotic, Zyrtec and Wellbutrin. SOCIAL HISTORY: He smokes about half a pack of cigars a day and has a few drinks per day. FAMILY HISTORY: Noncontributory. PHYSICAL EXAMINATION: VITAL SIGNS: On examination, patient's vital signs were within normal limits. HEENT: Ear exam show normal tympanic membranes bilaterally. Nasal exam show deviated nasal septum on the right side about 20%. Oropharynx and oral cavity showed Mallampati level III. No tonsil was noted. On the floor of the mouth, there is a leukoplakic lesion about cm to cm and a half on the left floor of the mouth. NECK: Showed no lymph node or thyroid palpable. CHEST: Showed good air entry bilaterally. CARDIOVASCULAR: Showed S1 and S2. No murmur noted. ASSESSMENT AND PLAN: Mr. Sr has lesion on the floor of the mouth. He does have risk factors for malignancy. The suggested treatment is panendoscopy, excisional biopsy of the floor of the mouth lesion on the left side and other necessary procedure. Complication of procedure includes, but not limited to bleeding, infection, perforation of the esophagus, pneumomediastinum, mediastinitis, airway compromise, persistent recurrence of the problem along with scarring of the floor of the mouth, blockage of the submandibular or sublingual gland. Alternatives will be continued observation, biopsy of the lesion in the office setting. The patient and his have elected to undergo surgical procedure. MD ESHA Gomez/BRUNO /[id number] cc: Dr. Pope
[2019-02-09 12:30] VITALS: BP 128/89
--- NOTE | 2019-02-15 11:51 | Operative Report ---
DATE OF PROCEDURE: 02/09/2019 SURGEON: Dipak Tobar MD CHIEF COMPLAINT: Lesion on floor of the mouth. POSTOPERATIVE DIAGNOSIS: Lesion on floor of the mouth. OPERATIVE PROCEDURES: Direct laryngoscopy, rigid esophagoscopy, rigid bronchoscopy, biopsy of the right and left tongue base and excision of left tongue lesion, excision of left floor of the mouth lesion 2 x 1 cm with appropriate closure. ANESTHESIA: Anesthesiology Group. HISTORY OF PRESENT ILLNESS: This 49-year-old male was noted by his dentist to have a lesion in the floor of the mouth. The lesion has been increasing in size. The area is not painful. The patient has no trauma to that region. The patient used tobacco. On examination, he was noted to have a leukoplakia lesion on the left floor of the mouth about 2 cm. No other abnormality was noted. The area was not nodular. It was decided that panendoscopy, excisional biopsy and other necessary procedure will be beneficial for him. DESCRIPTION OF PROCEDURE: The patient was taken to operating room, put under general anesthesia, endotracheally intubated. The patient was positioned. A rigid esophagoscopy was performed. The esophagoscope was passed through the cricopharyngeus muscle. The esophagus was examined to about 25 cm from the incisors, no abnormality was noted. The esophagoscope was retrieved. The rigid bronchoscopy was performed. A size 4 bronchoscope with Ochoa ricardo was used. The bronchoscope was passed parallel to the endotracheal tube. The endotracheal tube cuff was deflated. Trachea was examined down to the sumi, no abnormality was noted. The bronchoscope was retrieved. Endotracheal tube cuff was reinflated. The direct laryngoscopy was performed. The Bruce laryngoscope was used. The oropharynx and oral cavity were examined. Increased lymphoid tissue was noted in both the left and right tongue base. Both the left and right tongue base was biopsied and sent for permanent section. The larynx was examined. Both the true and false vocal folds were examined. No abnormality was noted. The piriform sinus on either side was examined. No abnormality was noted. The lesion on the floor of the mouth on the left side was noted. The excision of the floor of the mouth lesion was undertaken. The tongue was retracted anteriorly. The lesion was noted to be in the ventral surface partially of the left side of the tongue and on part of the floor of the mouth. The area was injected with 1% Xylocaine with 1:100,000 epinephrine for hemostasis. The area was excised and care was taken not to disturb any of the vasculature on the floor of the mouth or on the duct of the submandibular or sublingual gland. The lesion was excised. Size of the defect was about 2 x 1 cm. This was sent for permanent section. Closure of the area was undertaken. Any bleeding area was controlled using bipolar cautery. A buried 3-0 Vicryl suture was used in an interrupted fashion to close the incision without any problem. The patient tolerated the above procedure well with minimal blood loss. He was given 20 mg of Decadron intraoperatively. The patient was able to be transferred to recovery room in stable condition. MD GISELLE GomezH/MODL /[id number]
--- NOTE | 2019-04-08 12:18 | Pre Op History & Physical ---
CHIEF COMPLAINT: Lateral tongue high-grade dysplasia. HISTORY OF PRESENT ILLNESS: This 49 years old male was referred by his dentist because of a lesion in the left lateral tongue was noted to have high-grade dysplasia. The patient underwent a panendoscopy and biopsy in January of this year. The result returned as high-grade dysplasia left lateral tongue. No obvious malignancy was noted. The patient subsequently had a CT scan of the neck, which showed no lymphadenopathy with left thyroid nodule. The patient smokes half-a-pack of cigar a day and drinks a few drinks every day. REVIEW OF SYSTEMS: System review showed no recent cardiovascular, respiratory, or GI problem. PAST MEDICAL HISTORY: The patient has a history of hypertension. PAST SURGICAL HISTORY: He has a previous cervical spine fusion, cholecystectomy, prostate surgery, and tonsillectomy. The patient also had a recent panendoscopy and biopsy of the left lateral tongue. ALLERGIES: HE HAS NO KNOWN ALLERGY. MEDICATIONS: He is on pantoprazole, losartan, probiotic, Zyrtec, and Wellbutrin. SOCIAL HISTORY: He smokes half-a-pack of cigar a day. Drinks a few drinks per day. FAMILY HISTORY: Noncontributory. PHYSICAL EXAMINATION: VITAL SIGNS: The patient's vital signs were within normal limits. HEENT: Ear exam show normal tympanic membranes bilaterally. Nasal exam showed no obvious abnormality. Oropharynx and oral cavity showed the patient has some roughness in the left lateral tongue, floor of the mouth area. No other abnormality was noted. Oropharynx and oral cavity show no obvious abnormality. NECK: Showed no lymph nodes or thyroid palpable. CHEST: Showed good air entry bilaterally. CARDIOVASCULAR: Showed S1 and S2. No murmur noted. 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 Suggested treatment is excision of this area and other necessary procedure. This, along with panendoscopy will be performed. The complication of procedure includes, but not limited to bleeding, infection, perforation, esophagus, pneumomediastinum, mediastinitis, trouble movement of the tongue, wound breakdown, trouble with speech, and dysphagia. The alternative will be continue observation and biopsy in the office setting. The patient has elected to undergo surgical procedure. Dipak Tobar MD [facility]/[place] /[id number]
== END | disposition home or self-care (01) ==
LOC: OR 07:57
PROVIDERS: ATTEND Otolaryngology Otolaryngology/Facial Plastic Surgery
DX: K13.70 Unspecified lesions of oral mucosa (principal); I10 Essential (primary) hypertension; K21.9 Gastro-esophageal reflux disease without esophagitis; F17.210 Nicotine dependence, cigarettes, uncomplicated
CPT/HCPCS: 31535; 31622; 41116; 43191; 88305; 88342; 93005; J1100; J1885; J2001; J2250; J2405; J2704; J3010; J3490

== ENCOUNTER → 2019-04-13 | Day surgery (SDC) | payer OTHER ==
--- NOTE | 2019-04-08 12:18 | Pre Op History & Physical ---
CHIEF COMPLAINT: Lateral tongue high-grade dysplasia. HISTORY OF PRESENT ILLNESS: This 49 years old male was referred by his dentist because of a lesion in the left lateral tongue was noted to have high-grade dysplasia. The patient underwent a panendoscopy and biopsy in January of this year. The result returned as high-grade dysplasia left lateral tongue. No obvious malignancy was noted. The patient subsequently had a CT scan of the neck, which showed no lymphadenopathy with left thyroid nodule. The patient smokes half-a-pack of cigar a day and drinks a few drinks every day. REVIEW OF SYSTEMS: System review showed no recent cardiovascular, respiratory, or GI problem. PAST MEDICAL HISTORY: The patient has a history of hypertension. PAST SURGICAL HISTORY: He has a previous cervical spine fusion, cholecystectomy, prostate surgery, and tonsillectomy. The patient also had a recent panendoscopy and biopsy of the left lateral tongue. ALLERGIES: HE HAS NO KNOWN ALLERGY. MEDICATIONS: He is on pantoprazole, losartan, probiotic, Zyrtec, and Wellbutrin. SOCIAL HISTORY: He smokes half-a-pack of cigar a day. Drinks a few drinks per day. FAMILY HISTORY: Noncontributory. PHYSICAL EXAMINATION: VITAL SIGNS: The patient's vital signs were within normal limits. HEENT: Ear exam show normal tympanic membranes bilaterally. Nasal exam showed no obvious abnormality. Oropharynx and oral cavity showed the patient has some roughness in the left lateral tongue, floor of the mouth area. No other abnormality was noted. Oropharynx and oral cavity show no obvious abnormality. NECK: Showed no lymph nodes or thyroid palpable. CHEST: Showed good air entry bilaterally. CARDIOVASCULAR: Showed S1 and S2. No murmur noted. 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 Suggested treatment is excision of this area and other necessary procedure. This, along with panendoscopy will be performed. The complication of procedure includes, but not limited to bleeding, infection, perforation, esophagus, pneumomediastinum, mediastinitis, trouble movement of the tongue, wound breakdown, trouble with speech, and dysphagia. The alternative will be continue observation and biopsy in the office setting. The patient has elected to undergo surgical procedure. Dipak Tobar MD [facility]/[place] /[id number]
[~2019-04-13] MED LIST changes: -DEXAMETHASONE SOD PHOS 10 MG/1 ML VIAL ONE; +DEXAMETHASONE SOD PHOS INJ 4 MG/ML VIAL ONE; -GLYCOPYRROLATE INJ 1MG/ 5 ML SYR ONE; +LIDOCAINE 1% W/EPINEPHRINE 20 ML VIAL ONE; -LIDOCAINE HCL 2% LOCAL INJ 5 ML SDV VIAL INJ ONE; -NEOSTIGMINE 5 MG/5ML SYR ONE; -OXYMETAZOLINE HCL 0.05% NAS 1 SPRAY BTL ONE; -ROCURONIUM BROMIDE 10 MG/ML 5ML VIAL ONE
--- OUTSIDE RECORDS SUMMARY | 2019-04-13 07:33 | XMS REPORT | Summary of Care ---
Author Author [facility] - Health Organization [facility] - [facility] Address Unknown Phone Unavailable Care Team Providers Care Senior Operations Manager Name Role Phone Ekaterina Dipak Dominique PCP Reason for Referral * Radiology Services (Routine) Referred By Contact Referred To Contact Status Reason Specialty Diagnoses / Procedures Dipak Tobar [address] [place] [address] Closed Diagnostic Diagnoses Radiology Thyroid nodule P rocedures US HEAD NECK * Radiology Services (Routine) Referred By Contact Referred To Contact Status Reason Specialty Diagnoses / Procedures Dipak Tobar [address] [place] [address] Closed Diagnostic Diagnoses Radiology Thyroid nodule P rocedures US HEAD NECK Reason for Visit * Radiology Services (Routine) Referred By Contact Referred To Contact Status Reason Specialty Diagnoses / Procedures Darrellfabymatthew Dipak Dominique [address] [place] [address] Closed Diagnostic Diagnoses Radiology Thyroid nodule P rocedures US HEAD NECK Encounter Details Care Team Description Date Type Department Radiology [address] [place] [id number] Arrived 03/22/2019 Hospital [facility] Encounter [place] [facility] [address] [facility] [place] [phone] Allergies Not on Filedocumented as of this encounter (statuses as of 03/23/2019) Medications Not on filedocumented as of this encounter (statuses as of 03/23/2019) Active Problems Not on filedocumented as of this encounter (statuses as of 03/23/2019) Social History Date Tobacco Use Types Packs/Day Years Used Never Assessed Sex Assigned at Date Recorded Not on file Industry Job Start Date Occupation Not on file Not on file Not on file Travel End Travel History Travel Start No recent travel history available. documented as of this encounter Last Filed Vital Signs Not on filedocumented in this encounter Plan of Treatment Health Maintenance Due Date Last Done Comments DTaP,Tdap,and Td Vaccines 1989 (1 - Tdap) INFLUENZA VACCINE (#1) 2019 PNEUMOCOCCAL 0-64 YEARS Aged Out No longer eligible based COMBINED SERIES on patient's age to complete this topic documented as of this encounter Procedures Comments Procedure Name Priority Date/Time Associated Diagnosis US HEAD NECK Routine 03/22/2019 Thyroid nodule 2:13 PM CDT documented in this encounter Results * US HEAD NECK (03/22/2019 2:13 PM CDT) Specimen Impressions Performed At 1.Subcentimeter bilateral colloid cysts. No imaging follow-up is PACS/VR/DOSE recommended. 2.No evidence of solid nodules. 3.Benign-appearing lymph nodes in the left side of the neck. Narrative Performed At * * * * * * * * ORIGINAL REPORT * * * * * * * * PACS/VR/DOSE HISTORY: 49-year-old male with headache nodule. THYROID ULTRASOUND COMPARISON: None. FINDINGS: The right lobe of thyroid measures 5.8 x 1.8 x 2.0 cm. The midpole shows a anechoic nodule measuring 0.6 x 0.4 x 0.5 cm. The left lobe of thyroid measures 5.6 x 1.6 x 2.3 cm. The midpole shows an anechoic nodule measuring 1.0 x 0.6 x 0.8 cm. The isthmus measures 0.4 cm. Benign-appearing lymph nodes are seen in the left side of the neck. Procedure Note [facility], Radiant Results Inft User - 03/22/2019 2:21 PM CDT * * * * * * * * ORIGINAL REPORT * * * * * * * * HISTORY: 49-year-old male with headache nodule. THYROID ULTRASOUND COMPARISON: None. FINDINGS: The right lobe of thyroid measures 5.8 x 1.8 x 2.0 cm. The midpole shows a anechoic nodule measuring 0.6 x 0.4 x 0.5 cm. The left lobe of thyroid measures 5.6 x 1.6 x 2.3 cm. The midpole shows an anechoic nodule measuring 1.0 x 0.6 x 0.8 cm. The isthmus measures 0.4 cm. Benign-appearing lymph nodes are seen in the left side of the neck. IMPRESSION 1. Subcentimeter bilateral colloid cysts. No imaging follow-up is recommended. 2. No evidence of solid nodules. 3. Benign-appearing lymph nodes in the left side of the neck. Performing Organization Address City/State/Zipcode Phone Number PACS/VR/DOSE documented in this encounter Visit Diagnoses Diagnosis Thyroid nodule Nontoxic uninodular goiter documented in this encounter Insurance Type Payer Benefit Subscriber ID Effective Phone Address Plan / Dates Group HMO/PPO/POS [facility] [id number] [facility] documented as of this encounter
--- OUTSIDE RECORDS SUMMARY | 2019-04-13 07:33 | XMS REPORT ---
Author Author Jolly Adler Organization [employer] Address Unknown Phone Unavailable Care Team Providers Care Tripoler Name Role Phone Jolly Adler CP Unavailable Allergies, Adverse Reactions, Alerts Substance Reaction Event Type N.K.D.A. Info Not Available Non Drug Allergy Problems Problem Type Condition Code Onset Dates Condition Status Assessment Low testosterone R79.89 Active Problem Penile ulcer N48.5 Active Assessment Penile ulcer N48.5 Active Medications Medication Code System Code Instructions Start Date End Date Status Dosage Probiotic [facility] 89376711156 - Orally Active as directed Hydrochlorothiazide ND 80052123965 12.5 MG Orally Once a day Active 1 capsule in the morning BuPROPion HCl ER (XL) ND 39134785312 300 MG Orally Once a day Active 1 tablet in the morning Losartan Potassium ND 32983947952 25 MG Orally Active as directed Results No Known Results Summary Purpose [employer] Submission
[2019-04-13 09:31] LABS: ANION GAP 16.1 mmol/L (8-16); BLOOD UREA NITROGEN 16 mg/dL (7-26); BUN/CREATININE RATIO 14 (6-25); CALCIUM 9.8 mg/dL (8.4-10.2); CARBON DIOXIDE 24 mmol/L (22-29); CHLORIDE 104 mmol/L (98-107); CREATININE, SERUM 1.13 mg/dL (0.72-1.25); EST GLOMERULAR FILTRATION RATE > 60 ML/MIN (60-); GLUCOSE 96 mg/dL (74-118); POTASSIUM 4.1 mmol/L (3.5-5.1); SODIUM 140 mmol/L (136-145)
[2019-04-13 13:30] VITALS: BP 126/78
--- NOTE | 2019-04-13 19:50 | Operative Report ---
DATE OF PROCEDURE: 04/13/2019 SURGEON: Dipak Tobar MD CHIEF COMPLAINT: Severe dysplasia, left floor of the mouth. POSTOPERATIVE DIAGNOSIS: Severe dysplasia, left floor of the mouth. OPERATIVE PROCEDURE: Direct laryngoscopy, rigid esophagoscopy, rigid bronchoscopy, excision of severe dysplasia, left floor of the mouth 2 x 1 cm and excision of left lateral tongue 0.5 x 1 cm. ANESTHESIA: Anesthesiology group. INDICATIONS: This 49-year-old male had a biopsy of the left floor of the mouth by his dentist, which shows severe dysplasia. The patient had a panendoscopy and biopsy about a month ago, which at that time was just a biopsy it shows. To confirm the severe dysplasia, it was decided re-excision of the lesion along with panendoscopy and other necessary procedure in the left lateral tongue will be beneficial for him. DESCRIPTION OF PROCEDURE: The patient was taken to the operating room, put under general anesthesia, endotracheally intubated. The rigid esophagoscopy was performed. Esophagoscope was passed through the cricopharyngeus muscle. Esophagus was examined to about 25 cm from the incisors, no abnormality was noted. The esophagoscope was retrieved. Some reflux was noted. The rigid bronchoscopy was performed. A size #4 bronchoscope with the Ochoa wire was used. The bronchoscope was passed parallel to the endotracheal tube. Endotracheal tube cuff was deflated. The trachea was examined down to the sumi. No abnormality was noted. The bronchoscope was retrieved. Endotracheal tube cuff was reinflated. The direct laryngoscopy was performed. Bruce laryngoscope was used. Oropharynx and oral cavity were examined. 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 Lesion about a cm was noted in the left lateral tongue. The hypopharynx and piriform sinus were examined. No abnormality was noted. Larynx was examined. Both the true and false vocal folds were examined. No abnormality was noted. Excision of the floor of the mouth lesion and lateral tongue lesion was undertaken. The floor of the mouth on the left side and lateral tongue were injected 1% Xylocaine with 1:100,000 epinephrine for hemostasis. The lateral tongue lesion was excised first. The area was excised. Size of the defect was about 1 x 0.5 cm. This was sent for permanent section. This was excised in the anterior-posterior direction. Hemostasis was achieved using bipolar cautery. The area was closed using buried 3-0 Vicryl suture in interrupted fashion. The floor of the mouth lesion was addressed. The area was excised. Size of the defect was about 2 x 1 cm. Hemostasis was achieved using bipolar cautery. The lesion after excision, the defect was closed using 3-0 Vicryl suture again in the interrupted fashion. The patient tolerated the above procedure well with minimal blood loss. He was given 20 mg of Decadron intraoperatively. The patient was able to be transferred to recovery room in stable condition. MD GISELLE Gomez[facility] /[id number]
== END | disposition home or self-care (01) ==
LOC: OR 07:30
PROVIDERS: ATTEND Otolaryngology Otolaryngology/Facial Plastic Surgery
DX: D00.06 Carcinoma in situ of floor of mouth (principal); A63.0 Anogenital (venereal) warts; K21.9 Gastro-esophageal reflux disease without esophagitis; I10 Essential (primary) hypertension; E03.9 Hypothyroidism, unspecified; F17.210 Nicotine dependence, cigarettes, uncomplicated
CPT/HCPCS: 31525; 31622; 36415; 41112; 41116; 43191; 80048; 88305; 88342; 93005; J1100; J1885; J2250; J2405; J2704; J3010